=== PATIENT | female | born 1965 | race Two or more races ===

== ENCOUNTER 2017-04-21 08:31 | Emergency (ER) | payer MEDICARE, OTHER ==
[~2017-04-21] VITALS: Ht 167.6 cm; Wt 136.1 kg
[2017-04-21 08:55] VITALS: BP 146/98
== END 2017-04-21 09:22 | disposition home or self-care (01) ==
LOC: ER 08:31
DX: B86 Scabies (principal); Z88.1 Allergy status to other antibiotic agents; W57.XXXA Bitten or stung by nonvenomous insect and other nonvenomous arthropods, initial encounter; Y93.89 Activity, other specified; Y92.89 Other specified places as the place of occurrence of the external cause; Y99.8 Other external cause status

== ENCOUNTER 2023-12-29 01:34 | Emergency (ER) | payer MEDICARE, OTHER ==
[~2023-12-29] VITALS: Ht 165.1 cm; Wt 77.5 kg
[~2023-12-29 01:34] MED LIST: CEPH250C PO
[2023-12-29 02:15] VITALS: PULSE 101; RESP 17; O2SAT 99
[2023-12-29 02:25] LABS: Basophils # (auto) 0.1 10 ^3/uL (0-0.2); Basophils % (auto) 0.9 % (0.0-2.0); Eosinophils # (auto) 0.1 10 ^3/uL (0-0.8); Eosinophils % (auto) 1.7 % (0.0-7.0); Hematocrit 44.7 % (36.0-46.0); Hemoglobin 14.8 g/dL (12.2-16.2); Lymphocytes # (auto) 2.9 10 ^3/uL (0.4-5.4); Mean Corpuscular Hemoglobin 30.6 pg (28.0-32.0); Mean Corpuscular Hgb Conc. 33.2 g/dL (32.0-36.0); Mean Corpuscular Volume 92.3 fL (80.0-100.0); Monocytes # (auto) 0.4 10 ^3/uL (0-1.3); Monocytes % (auto) 6.3 % (0.0-12.0); Neutrophils # (auto) 2.8 10 ^3/uL (1.6-8.6); Neutrophils % (auto) 45.1 % (37.0-80.0); Nucleated Red Blood Cells % 0.1 %; Red Blood Cells 4.85 10^6/uL (4.0-5.20); White Blood Cell 6.3 10^3/uL (4.4-10.8)
[2023-12-29 02:35] LABS: Chloride 113 mmol/L (98-107); Potassium 3.7 mmol/L (3.5-5.1); Sodium 144 mmol/L (136-145)
[2023-12-29 02:36] LABS: Anion Gap 4 (5-15); Calcium 9.5 mg/dL (8.7-10.4); Carbon Dioxide 27 mmol/L (20-30)
[2023-12-29 02:41] LABS: BUN/Creatinine Ratio 11.1 (10.0-20.0); Blood Urea Nitrogen 6 mg/dL (9-23); Glucose 115 mg/dL (74-106)
[2023-12-29 02:43] LABS: Acetaminophen < 2.0 UG/ML (10.0-20.0)
[2023-12-29 02:55] LABS: Salicylate < 3.0 mg/dL (2.8-20.0)
[2023-12-29 03:05] LABS: Blood Alcohol 209.5 mg/dL (<10)
[2023-12-29 03:32] LABS: Amphetamine Screen, Urine Neg (NEGATIVE); Barbiturate Scree,Urine Neg (NEGATIVE); Benzodiazephine Screen, Urine Neg (NEGATIVE); Cocaine Screen, Urine Neg (NEGATIVE); Opiate Scree,Urine Neg (NEGATIVE); Phencyclidine Screen, Urine Neg (NEGATIVE)
[2023-12-29 03:33] LABS: Cannabinoid Screen, Urine Pos (NEGATIVE)
[2023-12-29 08:43] VITALS: PULSE 79; RESP 14; O2SAT 100
[2023-12-29] MEDS: ACETAMINOPHEN 325 MG TAB PO ONE (15:25)
[2023-12-29] MEDS: OLANZapine 5 MG TAB PO SCH (22:17)
[2023-12-30 09:30] VITALS: BP 134/104; PULSE 82; RESP 14; TEMP 97.7; O2SAT 98
[2023-12-30] MEDS ORDERED: FLUoxetine HCL 20 MG CAP PO SCH (10:00)
== END 2023-12-30 10:10 | disposition short-term general hospital (02) ==
LOC: ER 01:34
DX: T48.1X2A Poisoning by skeletal muscle relaxants [neuromuscular blocking agents], intentional self-harm, initial encounter (principal); F41.9 Anxiety disorder, unspecified; F32.9 Major depressive disorder, single episode, unspecified; Z79.899 Other long term (current) drug therapy; Y92.89 Other specified places as the place of occurrence of the external cause
CPT/HCPCS: 36415; 80048; 80307; 80320; 80329; 85025; 93005

== ENCOUNTER 2024-01-19 11:50 | Emergency (ER) | payer MEDICARE, OTHER ==
[~2024-01-19] VITALS: Ht 165.1 cm; Wt 75.0 kg
[2024-01-19 13:01] VITALS: BP 121/92; PULSE 105; RESP 16; TEMP 97.7; O2SAT 99
== END 2024-01-19 13:34 | disposition home or self-care (01) ==
LOC: ER 11:52
DX: S63.8X2A Sprain of other part of left wrist and hand, initial encounter (principal); F41.9 Anxiety disorder, unspecified; F32.9 Major depressive disorder, single episode, unspecified; Z88.8 Allergy status to other drugs, medicaments and biological substances; Z79.899 Other long term (current) drug therapy; W01.0XXA Fall on same level from slipping, tripping and stumbling without subsequent striking against object, initial encounter; Y93.89 Activity, other specified; Y92.89 Other specified places as the place of occurrence of the external cause; Y99.8 Other external cause status
CPT/HCPCS: 73130

== ENCOUNTER 2024-10-15 13:39 | Emergency (ER) | payer MEDICARE, OTHER ==
[~2024-10-15] VITALS: Ht 165.1 cm; Wt 82.7 kg
[2024-10-15 16:26] VITALS: BP 98/74; PULSE 72; RESP 20; TEMP 98.6; O2SAT 100
--- NOTE | 2024-10-15 17:01 | DVH ---
CLINICAL INDICATION: pain. r/o fracture TECHNIQUE: 2 views left humerus XY L HUMERUS XRAY Comparison: None FINDINGS/IMPRESSION: : There is no evidence of acute fracture or dislocation. Soft tissues are unremarkable.
[2024-10-15] MEDS: HYDROcodone-ACET 10/325MG TAB PO ONE (17:02)
--- NOTE | 2024-10-15 17:04 | ED.PDOC ---
Musculoskeletal HPI Comments This is a pleasant 59-year-old female that presents with a chief complaint of nontraumatic left humerus pain x4 weeks. She has a history of fibromyalgia. Denies any trauma injury but does admit to persistent pain that worsens with movement. Denies chest pain shortness of breath Chief Complaint: Upper Extremity Time Seen by MD: 15:20 Primary Care Provider: NORMA Reviewed Notes: Nurses Notes, Medications, Allergies Allergies: Coded Allergies: Levofloxacin (Verified Allergy, Unknown, 04/21/17) Sulfa Antibiotics (Verified Allergy, Unknown, 10/15/24) Uncoded Allergies: SULFA (Allergy, Unknown, 04/21/17) Home Meds Active Scripts Cephalexin (KEFLEX CAPSULE) 250 Mg Cp, 250 MG PO QID for 7 Days, #28 BOTTLE Prov:MARÍA MORTENSEN MD 10/27/23 Information Source: Patient Mode of Arrival: Ambulatory Past Medical History PAST MEDICAL HISTORY: Anxiety, Depression Surgical History: Denies all surgeries SYSTEM DESIGNER History: Denies all SYSTEM DESIGNER Hx Family History Family History: Reviewed,noncontributory to illness Social History Smoker: Non-Smoker Alcohol: Denies ETOH Use Drugs: Denies Drug Use Lives In: Home All Other Systems: Reviewed and Negative (Per HPI) Physical Exam General Appearance: No Apparent Distress, Normal HEENT: Normal ENT Inspection, Pharynx Normal, TMs Normal Neck: Full Range of Motion, Non-Tender, Normal, Normal Inspection Respiratory: Chest Non-Tender, Lungs Clear, No Accessory Muscle Use, No Respiratory Distress, Normal Breath Sounds Cardiovascular: No Murmur, No Gallop, Regular Rate/Rhythm Breast Exam: Deferred Gastrointestinal: No Organomegaly, Non Tender, No Pulsatile Mass, Normal Bowel Sounds, Soft Genitalia: Deferred Pelvic: Deferred Rectal: Deferred Extremities: No calf tenderness, Normal capillary refill, Normal inspection, Normal range of motion, Non-tender, No pedal edema Musculoskeletal : Location: Left Extremity Location: Arm (normal on inspection) Apperance: Normal Neurologic: Alert, No Motor Deficits, Normal Affect, Normal Mood, No Sensory Deficits Cerebellar Function: Normal Reflexes: Normal Skin: Dry, Normal Color, Warm Lymphatic: No Adenopathy Was a procedure done? Was a procedure done?: No Differential Diagnosis EXT Differential Diagnosis: Sprain X-Ray, Labs, Meds, VS Vital Signs Date Time Temp Pulse Resp B/P (MAP) Pulse Ox O2 Delivery O2 Flow Rate FiO2 10/15/24 16:26 98.6 72 20 98/74 (82) 100 98.6 10/15/24 16:26 72 20 100 Room Air 10/15/24 14:12 98.6 72 20 98/74 (82) 100 Current Medications Medications (Trade) Dose Ordered Sig/Cornelia Route Start Time Stop Time Status Last Admin Acetaminophen/ Hydrocodone Bitart ([place] 10/325MG Tab) 1 tab ONCE ONCE PO 10/15/24 16:45 10/15/24 16:46 DC 10/15/24 17:02 X-Ray, Labs, Meds, VS Comment On reevaluation, patient had symptomatic improvement. ER the patient received [place] x1 Patient is stable for discharge at this time. External notes reviewed. Test results and diagnostic imaging interpreted. All diagnostic findings, discharge care, education and instructions provided Follow-up with PCP in 2 to 3 days Patient verbalized understanding and agreed to treatment plan Vital signs stable, afebrile, no acute distress noted Patient ambulatory with strong steady gait Advised to return precautions for any new or worsening symptoms, return to ER immediately for re-evaluation Patient is aware that the purpose of this visit was for an acute medical emergency requiring emergent stabilization. Chronic conditions, including malignancies have not been ruled out. Patient is instructed to follow up with PCP as directed and discharge instructions for continued care and workup. If unable to arrange follow-up, patient is to return to the emergency department for reassessment. Patient (parent or legal guardian if applicable) was given verbal and written discharge instructions and acknowledges understanding. Time of 1ST Reevaluation: 17:00 Reevaluation 1ST: Improved Patient Education/Counseling: Diagnosis, Treatment Family Education/Counseling: Diagnosis, Treatment Departure 1 Departure Time of Disposition: 17:03 Impression: Primary Impression: Left upper arm pain Disposition: 01 HOME / SELF CARE / HOMELESS Condition: Stable Critical Care Note Critical Care Time?: No Stability Stability form required: No Heart Score Heart Score: Heart Score Response (Comments) Value History N/A 0 EKG N/A 0 Age N/A 0 Risk Factors N/A 0 Troponin N/A 0 Total 0 DEANNA RICHARD NP Oct 15, 2024 17:04
== END 2024-10-15 17:09 | disposition home or self-care (01) ==
LOC: ER 13:39
DX: M79.602 Pain in left arm (principal); F41.9 Anxiety disorder, unspecified; F32.9 Major depressive disorder, single episode, unspecified; Z88.2 Allergy status to sulfonamides; Z88.1 Allergy status to other antibiotic agents
CPT/HCPCS: 73060